=== PATIENT | male | born 1980 ===

== ENCOUNTER 2016-05-28 10:44 | Emergency (ER) | payer OTHER ==
[2016-05-28 10:45] VITALS: BMI 27.4
[2016-05-28] MEDS ORDERED: Sodium Chloride 0.9% 1,000 ML IV STA (11:21)
--- NOTE | 2016-05-28 11:24 | ED PDOC ---
HPI: Abdomen Time Seen by Provider: 05/28/16 11:02 Chief Complaint (Nursing): Abdominal Pain Chief Complaint (Provider): Abdominal Pain History Per: Patient History/Exam Limitations: no limitations Onset/Duration Of Symptoms: Days Current Symptoms Are (Timing): Still Present Severity: Mild Location Of Pain/Discomfort: Diffuse Associated Symptoms: Nausea, Diarrhea. denies: Fever, Vomiting Exacerbating Factors: None Alleviating Factors: None Additional Complaint(s): Patient is a 36 year old male who presents to ED for diffuse abdominal pain for 3 days, initially intermittent but became constant yesterday. Patient states that while at work yesterday he smelled gas which caused a worsening in abdominal pain with nausea and diarrhea. Denies fever, vomiting, chest pain, back pain or urinary changes. Past Medical History Reviewed: Historical Data, Nursing Documentation, Vital Signs Vital Signs: Last Vital Signs Temp 97.9 F 05/28/16 10:52 Pulse 73 05/28/16 10:52 Resp 18 05/28/16 10:52 BP 100/63 05/28/16 10:52 Pulse Ox 100 05/28/16 11:27 - Medical History PMH: No Chronic Diseases - Surgical History Surgical History: No Surg Hx - Family History Family History: States: Unknown Family Hx - Immunization History Hx Tetanus Toxoid Vaccination: No Hx Influenza Vaccination: No Hx Pneumococcal Vaccination: No - Home Medications Home Medications: Ambulatory Orders Medication Instructions Recorded Famotidine [Pepcid] 20 mg PO BID #28 tab 05/28/16 Ondansetron [Zofran] 4 mg PO Q8H #9 tab 05/28/16 - Allergies Allergies/Adverse Reactions: Allergies Allergy/AdvReac Type Severity Reaction Status Date / Time No Known Allergies Allergy Verified 05/28/16 11:22 Review of Systems ROS Statement: Except As Marked, All Systems Reviewed And Found Negative Constitutional: Negative for: Fever, Chills Gastrointestinal: Positive for: Nausea, Abdominal Pain, Diarrhea. Negative for : Vomiting, Hematochezia Genitourinary Male: Negative for: Dysuria, Frequency, Hematuria Musculoskeletal: Negative for: Back Pain Neurological: Negative for: Weakness, Numbness Physical Exam - Reviewed Nursing Documentation Reviewed: Yes Vital Signs Reviewed: Yes - Physical Exam Appears: Positive for: Non-toxic, No Acute Distress Skin: Positive for: Normal Color, Warm Eye Exam: Positive for: Normal appearance Neck: Positive for: Normal, Painless ROM Cardiovascular/Chest: Positive for: Regular Rate, Rhythm. Negative for: Murmur Respiratory: Positive for: Normal Breath Sounds. Negative for: Respiratory Distress Gastrointestinal/Abdominal: Positive for: Bowel Sounds (active), Soft, Tenderness (mild diffuse but greatest to RUQ). Negative for: Distended, Guarding, Rebound Back: Positive for: Normal Inspection. Negative for: L CVA Tenderness, R CVA Tenderness Extremity: Positive for: Normal ROM Neurologic/Psych: Positive for: Alert, Oriented - Laboratory Results Result Diagrams: 05/28/16 11:23 05/28/16 11:23 - ECG O2 Sat by Pulse Oximetry: 100 (RA) Pulse Ox Interpretation: Normal Medical Decision Making Medical Decision Making: Time: 1115 Initial impression: Abdominal pain Initial plan: -- CMP -- Lipase -- Urine dip -- CBC -- NSF, Pepcid, Toradol and Zofran -- U/S Scribe Attestation: Documented by Emilia Bahena acting as a scribe for Emily Rand MD MD Scribe Attestation: All medical record entries made by the Scribe were at my direction and personally dictated by me. I have reviewed the chart and agree that the record accurately reflects my personal performance of the history, physical exam, medical decision making, and the department course for this patient. I have also personally directed, reviewed, and agree with the discharge instructions and disposition. 5.14 - patient is feeling better. labs and abd US normal without acute pathology Disposition - Clinical Impression Clinical Impression: Abdominal pain - Patient ED Disposition Is Patient to be Admitted: No Doctor Will See Patient In The: Office Counseled Patient/Family Regarding: Diagnosis, Need For Followup, Rx Given - Disposition Referrals: [facility] [Outside] [facility] [employer] [facility] [Outside] [place] [Outside] Disposition: Routine/Home Disposition Time: 16:31 Condition: STABLE Prescriptions: Famotidine [Pepcid] 20 mg PO BID #28 tab Ondansetron [Zofran] 4 mg PO Q8H #9 tab Instructions: Abdominal Pain (ED) - POA Present On Arrival: None
[2016-05-28 11:54] LABS: BASO % 0.3 % (0.0-2.0); EOS # 0.2 K/uL (0.0-0.7); EOS % 2.8 % (0.0-4.0); HEMATOCRIT 48.3 % (35.0-51.0); LYMPH # 1.3 K/uL (1.0-4.3); LYMPH % 18.3 % (20.0-40.0); MEAN CORPUSCULAR HEMOGLOBIN 30.7 pg (27.0-31.0); MEAN CORPUSCULAR HGB CONC 33.4 g/dL (33.0-37.0); MEAN PLATELET VOLUME 8.4 fl (7.2-11.7); MONO % 13.9 % (0.0-10.0); NEUT # 4.5 K/uL (1.8-7.0); NEUT % 64.7 % (50.0-75.0)
[2016-05-28 12:15] LABS: ALB/GLOB RATIO 1.2 (1.0-2.1); ALKALINE PHOSPHATASE 60 U/L (38-126); ALT/SGPT 49 U/L (21-72); AST/SGOT 39 U/L (17-59); BILIRUBIN,TOTAL 0.5 mg/dl (0.2-1.3); BLOOD UREA NITROGEN 12 mg/dl (9-20); CALCIUM 9.1 mg/dL (8.4-10.2); CARBON DIOXIDE 24 mmol/L (22-30); CHLORIDE 103 mmol/L (98-107); GFR AFRICAN-AMERICAN > 60; GLUCOSE,RANDOM 100 mg/dL (75-110); LIPASE 84 U/L (23-300); POTASSIUM 3.8 MMOL/L (3.6-5.0); SODIUM 143 mmol/l (132-148); TOTAL PROTEIN 7.8 G/DL (6.3-8.2)
--- NOTE | 2016-05-28 13:22 | US ---
HISTORY: diffuse tenderness with predominance in the RUQ COMPARISON: Images from CT abdomen and pelvis without contrast performed 07/29/11 TECHNIQUE: Sonographic evaluation of the abdomen. FINDINGS: LIVER: Measures 12.3 cm in sagittal dimension. Echogenic liver may be seen in setting of hepatic parenchymal disease or fatty infiltration. No focal hepatic mass identified. The main portal vein appears patent with normal directional flow. No intrahepatic bile duct dilatation. GALLBLADDER: No gallstones. No gallbladder wall thickening. Negative sonographic [place]'s sign as assessed by the rn paralegal. COMMON BILE DUCT: Measures 2 mm. PANCREAS: Not well visualized. RIGHT KIDNEY: Measures 10.3 x 4.3 x 5.5 cm. No obstructing calculus or hydronephrosis identified. LEFT KIDNEY: Measures 10.3 x 4.7 x 4.3 cm. No obstructing calculus or hydronephrosis identified. SPLEEN: Measures approximately 9.7 cm. AORTA: Limited views appear grossly unremarkable. IVC: Limited views appear grossly unremarkable. OTHER FINDINGS: None. IMPRESSION: Echogenic liver may be seen in setting of hepatic parenchymal disease or fatty infiltration.
[2016-05-28 17:12] VITALS: BP 107/66; PULSE 60; RESP 16; TEMP 98.2
[2016-05-28 17:13] VITALS: O2SAT 100
== END 2016-05-28 17:27 | disposition home or self-care (01) ==
LOC: H.ER 10:44
DX: R10.9 Unspecified abdominal pain (principal); R11.2 Nausea with vomiting, unspecified

== ENCOUNTER 2017-01-21 23:50 | Emergency (ER) | payer OTHER ==
[2017-01-21 23:50] VITALS: BMI 27.4
[2017-01-22 00:21] VITALS: BP 135/76; PULSE 70; RESP 18; TEMP 97.8; O2SAT 97
--- NOTE | 2017-01-22 00:38 | ED PDOC ---
HPI: General Adult Time Seen by Provider: 01/22/17 00:23 Chief Complaint (Nursing): Dental Pain History Per: Patient Additional Complaint(s): Pt. states yesterday in the afternoon he had a wisdom tooth extracted from the L lower jaw. States he's had intermittent bleeding since then. Reports that he is able to stop the bleeding with pressure but is concerned as he had a previous wisdom tooth extraction of the R jaw but no bleeding occurred. Denies pain, swelling, fever, hx of anemia. Past Medical History Reviewed: Historical Data, Nursing Documentation, Vital Signs Vital Signs: Last Vital Signs Temp 97.8 F 01/22/17 00:18 Pulse 70 01/22/17 00:18 Resp 18 01/22/17 00:18 BP 135/76 01/22/17 00:18 Pulse Ox 97 01/22/17 00:18 - Family History Family History: States: No Known Family Hx - Immunization History Hx Tetanus Toxoid Vaccination: No Hx Influenza Vaccination: No Hx Pneumococcal Vaccination: No - Home Medications Home Medications: Ambulatory Orders Medication Instructions Recorded Famotidine [Pepcid] 20 mg PO BID #28 tab 05/28/16 Ondansetron [Zofran] 4 mg PO Q8H #9 tab 05/28/16 - Allergies Allergies/Adverse Reactions: Allergies Allergy/AdvReac Type Severity Reaction Status Date / Time No Known Allergies Allergy Verified 05/28/16 11:22 Review of Systems ROS Statement: Except As Marked, All Systems Reviewed And Found Negative Physical Exam - Physical Exam Appears: Positive for: Well, Non-toxic, No Acute Distress Skin: Positive for: Normal Color, Warm. Negative for: Rash Eye Exam: Positive for: Normal appearance ENT: Positive for: Other (L lower mandibular molar area with blood noted but no active bleeding; no gingival swelling) - ECG O2 Sat by Pulse Oximetry: 97 - Progress ED Course And Treament: Pt. states he has an appointment with his dentist tomorrow. Disposition - Clinical Impression Clinical Impression: Visit for wound check - Patient ED Disposition Is Patient to be Admitted: No - Disposition Disposition: Routine/Home Disposition Time: 00:40 Condition: STABLE Additional Instructions: Follow up with your dentist today without fail. Instructions: Tooth Extraction (ED)
== END 2017-01-22 00:45 | disposition home or self-care (01) ==
LOC: H.ER 23:50
DX: K08.89 Other specified disorders of teeth and supporting structures (principal)

== ENCOUNTER 2017-08-22 14:17 | Emergency (ER) | payer SELFPAY ==
[2017-08-22 14:17] VITALS: BMI 27.4
[2017-08-22 14:52] VITALS: BP 123/65; PULSE 66; RESP 16; TEMP 98.8; O2SAT 99
--- NOTE | 2017-08-22 16:30 | RAD ---
HISTORY: Upper back Pain. No history of recent/ related trauma provided. COMPARISON: No prior. FINDINGS: BONES: Alignment maintained. No fracture. DISC SPACES: Normal. SOFT TISSUES: Normal. OTHER FINDINGS: None. IMPRESSION: Normal radiographs of the thoracic spine.
--- NOTE | 2017-08-22 16:33 | ED PDOC ---
HPI: Back Time Seen by Provider: 08/22/17 14:57 Chief Complaint (Nursing): Back Pain Chief Complaint (Provider): Back Pain History Per: Patient History/Exam Limitations: no limitations Onset/Duration Of Symptoms: Days (x4) Current Symptoms Are (Timing): Still Present Additional Complaint(s): 37 y/o male presents for evaluation of upper back pain after lifting a heavy object at work on Tuesday. He states that he took Tylenol earlier today with good relief however whenever he moves his arms up he feels the discomfort. He denies any history of back injury or surgery. Denies any fever, chills, abdominal pain, chest pain, nausea, vomiting, cough, saddle anesthesia, incontinence, urinary symptoms, numbness/weakness, and shortness of breath. PMD: None Past Medical History Reviewed: Historical Data, Nursing Documentation, Vital Signs Vital Signs: Last Vital Signs Temp 98.8 F 08/22/17 14:49 Pulse 66 08/22/17 14:49 Resp 16 08/22/17 14:49 BP 123/65 08/22/17 14:49 Pulse Ox 99 08/22/17 14:49 - Medical History PMH: No Chronic Diseases - Surgical History Surgical History: No Surg Hx - Family History Family History: States: Unknown Family Hx - Social History Current smoker - smoking cessation education provided: No Alcohol: None Drugs: Denies - Home Medications Home Medications: Ambulatory Orders Medication Instructions Recorded Famotidine [Pepcid] 20 mg PO BID #28 tab 05/28/16 Ondansetron [Zofran] 4 mg PO Q8H #9 tab 05/28/16 Cyclobenzaprine [Cyclobenzaprine 10 mg PO Q8 PRN #12 tab 08/22/17 HCl] Naproxen 500 mg PO BID PRN #20 tab 08/22/17 - Allergies Allergies/Adverse Reactions: Allergies Allergy/AdvReac Type Severity Reaction Status Date / Time No Known Allergies Allergy Verified 08/22/17 14:49 Review of Systems ROS Statement: Except As Marked, All Systems Reviewed And Found Negative Constitutional: Negative for: Fever, Chills Cardiovascular: Negative for: Chest Pain Respiratory: Negative for: Cough, Shortness of Breath Gastrointestinal: Negative for: Nausea, Vomiting, Abdominal Pain Musculoskeletal: Positive for: Back Pain Physical Exam - Reviewed Nursing Documentation Reviewed: Yes Vital Signs Reviewed: Yes - Physical Exam Comments: GENERAL APPEARANCE: Patient is awake, alert, oriented x 3, in no acute distress. Resting comfortably in ED. SKIN: Warm, dry; (-) cyanosis. EYES: (-) conjunctival pallor. ENMT: Mucous membranes moist. NECK: Supple, FROM (-) tenderness, (-) stiffness, (-) lymphadenopathy. CHEST AND RESPIRATORY: (-) rales, (-) rhonchi, (-) wheezes; breath sounds equal bilaterally. Speaking in full sentences, respirations even and nonlabored. HEART AND CARDIOVASCULAR: (-) irregularity; (-) murmur, (-) gallop. ABDOMEN AND GI: Soft; (-) tenderness (-) guarding (-) distention; (-) palpable mass. BACK: (+) tenderness to the proximal midline thoracic spine, (-) overlying skin changes, (-) palpable bony deformity (-) paraspinal tenderness. Straight leg raising (-) bilaterally. EXTREMITIES: (-) deformity. Distal pulses good bilaterally. NEURO AND PSYCH: Mental status as above. 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 Gait steady, speech clear. Normal cognition. Affect appropriate. - ECG O2 Sat by Pulse Oximetry: 99 (RA) Pulse Ox Interpretation: Normal Medical Decision Making Medical Decision Makin:42 Impression: Acute back pain/strain Plan: --Dorsal thoracic spine X-Ray --Reevaluation --Patient declined pain medication at this time. 1645 XR reviewed, radiology report follows HISTORY: Upper back Pain. No history of recent/ related trauma provided. COMPARISON: No prior. FINDINGS: BONES: Alignment maintained. No fracture. DISC SPACES: Normal. SOFT TISSUES: Normal. OTHER FINDINGS: None. IMPRESSION: Normal radiographs of the thoracic spine. On re-evaluation, patient offers no additional complaints. On exam, patient remains AAOx3, in no acute distress. Neck is supple, lungs CTA, cardiac RRR, abdomen is soft and non-tender, neuro exam shows no focal findings. Ambulatory in ED with steady, unassisted gait. VSS, stable for discharge. Diagnostic results d/w the patient in great detail. Dx of acute back pain/ strain d/w the patient. Based on history, exam and diagnostic results plan will be for discharge and outpatient follow up. Advised to follow up with primary care physician/clinic/referred provider in 1- 2 days without fail. Advised to take medication as prescribed. Return to the emergency room at any time for any new or worsening symptoms. Patient states he fully agrees with and understands discharge instructions. States that he agrees with the plan and disposition. Verbalized and repeated discharge instructions and plan. I have given the patient opportunity to ask any additional questions. Scribe Attestation: Documented by Sonny Killian, acting as a scribe for Sania Elizabeth PA-C. Provider Scribe Attestation: All medical record entries made by the scribe were at my direction and personally dictated by me. I have reviewed the chart and agree that the record accurately reflects my personal performance of the history, physical exam, medical decision making, and the department course for this patient. I have also personally directed, reviewed, and agree with the discharge instructions and disposition. Disposition - Clinical Impression Clinical Impression: Upper back strain, Back pain - Patient ED Disposition Is Patient to be Admitted: No Counseled Patient/Family Regarding: Studies Performed, Diagnosis, Need For Followup, Rx Given - Disposition Referrals: [facility] [Outside] Bertrand Cifuentes MD [Staff Provider] - Disposition: Routine/Home Disposition Time: 16:51 Condition: STABLE Additional Instructions: FOLLOW UP WITH CLINIC/ORTHO NEEDED FOR FURTHER EVALUATION. RETURN TO ED WITH ANY NEW OR WORSENING SYMPTOMS. Prescriptions: Cyclobenzaprine [Cyclobenzaprine HCl] 10 mg PO Q8 PRN #12 tab PRN Reason: Muscle Spasm Naproxen 500 mg PO BID PRN #20 tab PRN Reason: Pain, Moderate (4-7) Instructions: Muscle Strain (DC), Upper Back Pain Forms: [employer] [facility] (Senegalese) Print Language: PORTUGUESE - POA Present On Arrival: None
== END 2017-08-22 17:21 | disposition home or self-care (01) ==
LOC: H.ER 14:17
DX: M54.9 Dorsalgia, unspecified (principal)

== ENCOUNTER 2018-02-09 14:54 | Emergency (ER) | payer OTHER ==
[2018-02-09 14:54] VITALS: BMI 27.4
[2018-02-09 15:15] VITALS: BP 118/70
--- NOTE | 2018-02-09 15:31 | ED PDOC ---
HPI: General Adult Time Seen by Provider: 02/09/18 15:18 Chief Complaint (Nursing): Flu-like Symptoms Chief Complaint (Provider): Fever History Per: Patient History/Exam Limitations: no limitations Onset/Duration Of Symptoms: Days (x4) Current Symptoms Are (Timing): Still Present Additional Complaint(s): 37 year old male presents to the ED for evaluation of fever associated with body aches, sore throat and chills for four days. Patient reports being seen by his PMD yesterday and was given amoxicillin for throat infection. He has taken 2 doses of the antibiotics but still has fever prompting ED visit today. Patient denies any cough or headache. He denies vomiting and is tolerating liquids and solids. PMD: Haven Molina NP Past Medical History Reviewed: Historical Data, Nursing Documentation, Vital Signs Vital Signs: Last Vital Signs Temp 102.0 F H 02/09/18 15:09 Pulse 104 H 02/09/18 15:09 Resp 16 02/09/18 15:09 BP 118/70 02/09/18 15:09 Pulse Ox 100 02/09/18 15:09 - Medical History PMH: No Chronic Diseases - Surgical History Surgical History: No Surg Hx - Family History Family History: States: No Known Family Hx - Living Arrangements Living Arrangements: With Family - Social History Current smoker - smoking cessation education provided: No Alcohol: None Drugs: Denies - Home Medications Home Medications: Ambulatory Orders Medication Instructions Recorded Famotidine [Pepcid] 20 mg PO BID #28 tab 05/28/16 Ondansetron [Zofran] 4 mg PO Q8H #9 tab 05/28/16 Cyclobenzaprine [Cyclobenzaprine 10 mg PO Q8 PRN #12 tab 08/22/17 HCl] Naproxen 500 mg PO BID PRN #20 tab 08/22/17 - Allergies Allergies/Adverse Reactions: Allergies Allergy/AdvReac Type Severity Reaction Status Date / Time No Known Allergies Allergy Verified 08/22/17 14:49 Review of Systems ROS Statement: Except As Marked, All Systems Reviewed And Found Negative Constitutional: Positive for: Fever, Chills, Other (body aches) ENT: Positive for: Throat Pain Respiratory: Negative for: Cough Gastrointestinal: Negative for: Nausea, Vomiting, Abdominal Pain Neurological: Negative for: Headache Physical Exam - Reviewed Nursing Documentation Reviewed: Yes Vital Signs Reviewed: Yes - Physical Exam Appears: Positive for: Well, Non-toxic, No Acute Distress Head Exam: Positive for: ATRAUMATIC, NORMOCEPHALIC Skin: Positive for: Normal Color. Negative for: Rash Eye Exam: Positive for: Normal appearance ENT: Positive for: Tonsillar Swelling (and erythema) Neck: Positive for: Normal, Painless ROM, Supple Cardiovascular/Chest: Positive for: Regular Rate, Rhythm Respiratory: Positive for: Normal Breath Sounds. Negative for: Respiratory Distress Neurologic/Psych: Positive for: Alert, Oriented (x3) - ECG O2 Sat by Pulse Oximetry: 100 (RA) Pulse Ox Interpretation: Normal Medical Decision Making Medical Decision Making: Time: 1537 Initial Impression: 37 year old male with fever and tonsillitis, started on amoxicillin as of yesterday Initial Plan: --Tylenol --Motrin --Patient already has script for amoxicillin from PMD which he has been instructed to finish. Additionally, patient is to be discharged with specific fever control instructions. Repeat VS prior to d/c are improved, temp: 98.6, HR: 74. Patient states he feels better. Fever control instructions given. He was advised to continue with amoxicillin and follow up with PMD. Scribe Attestation: Documented by Damaris Naranjo, acting as a scribe for Germaine Rizzo PA-C Provider Scribe Attestation: All medical record entries made by the Scribe were at my direction and personally dictated by me. I have reviewed the chart and agree that the record accurately reflects my personal performance of the history, physical exam, medical decision making, and the department course for this patient. I have also personally directed, reviewed, and agree with the discharge instructions and disposition. Disposition - Clinical Impression Clinical Impression: Tonsillitis - Patient ED Disposition Is Patient to be Admitted: No Counseled Patient/Family Regarding: Diagnosis, Need For Followup, Rx Given - Disposition Referrals: Radha Molina APN [Advanced Practice Nurse] - Disposition: Routine/Home Disposition Time: 15:45 Condition: STABLE Additional Instructions: CONTINUE WITH ANTIBIOTICS PRESCRIBED. TAKE 3 ADVIL EVERY 6 HOURS AND 2 325 MG TYLENOL TABS (AVAILABLE OVER THE COUNTER WITHOUT PRESCRIPTION) EVERY 4 HRS. REST MUCH POSSIBLE AND DRINK PLENTY OF FLUIDS. FOLLOW UP IN 2-3 DAYS WITH YOUR PRIMARY CARE DOCTOR. Instructions: Sore Throat, Adult (DC) Forms: [facility] (Yemeni), [facility] ED School/Work Excuse
[2018-02-09 16:36] VITALS: PULSE 74; RESP 18; TEMP 98.6
[2018-02-09 16:44] VITALS: O2SAT 100
== END 2018-02-09 16:56 | disposition home or self-care (01) ==
LOC: H.ER 14:54
DX: J03.90 Acute tonsillitis, unspecified (principal)